=== PATIENT | female | born 1970 | race Asian ===

== ENCOUNTER 2016-06-28 09:55 | Emergency (ER) | payer MEDICAID, OTHER ==
[~2016-06-28] VITALS: Ht 149.9 cm; Wt 53.6 kg
[~2016-06-28 09:55] MED LIST: AMLO2.5T2 PO
[2016-06-28] MEDS ORDERED: SIMV-260 PO (10:19)
[2016-06-28] MEDS ORDERED: METF500T4 PO (10:19)
[2016-06-28 10:21] LABS: GLUCOSE,POINT OF CARE 96 MG/DL (70-110)
[2016-06-28 12:35] VITALS: BP 151/99
== END 2016-06-28 13:40 | disposition home or self-care (01) ==
LOC: EMS 09:59
DX: J06.9 Acute upper respiratory infection, unspecified (principal); E78.00 Pure hypercholesterolemia, unspecified; I10 Essential (primary) hypertension; E11.9 Type 2 diabetes mellitus without complications; Z88.6 Allergy status to analgesic agent
CPT/HCPCS: 82962; 99282